=== PATIENT | female | born 1990 | race Caucasian/White ===

== ENCOUNTER 2022-08-17 10:08 | Emergency (ER) | payer BC ==
[~2022-08-17] VITALS: Ht 165.1 cm; Wt 52.0 kg
[2022-08-17 10:10] VITALS: BP 117/70
[2022-08-17] MEDS ORDERED: LEVETIRACETAM 500MG TABLET PO ONE (11:00)
== END 2022-08-17 11:18 | disposition left against medical advice (07) ==
LOC: ER 10:08
DX: R56.9 Unspecified convulsions (principal)
CPT/HCPCS: 99283

== ENCOUNTER 2023-02-14 09:22 | Emergency (ER) | payer BC ==
[~2023-02-14] VITALS: Ht 162.6 cm; Wt 59.0 kg
[2023-02-14 09:27] VITALS: BP 111/69; PULSE 105; RESP 16; TEMP 98.4; O2SAT 97
== END 2023-02-14 09:53 | disposition left against medical advice (07) ==
LOC: ER 09:37
DX: R56.9 Unspecified convulsions (principal)
CPT/HCPCS: 99283